=== PATIENT | male | born 2000 | race Caucasian/White ===

== ENCOUNTER 2020-04-14 14:55 | Emergency (ER) | payer OTHER ==
[~2020-04-14] VITALS: Ht 223.5 cm; Wt 78.2 kg
[2020-04-14 15:07] VITALS: BP 121/72; TEMP 97.8
[2020-04-14 16:49] VITALS: PULSE 75
== END 2020-04-14 16:49 | disposition home or self-care (01) ==
LOC: COL.ER 14:55
DX: B34.9 Viral infection, unspecified (principal); Z20.822 Contact with and (suspected) exposure to COVID-19